=== PATIENT | male | born 1960 | race Caucasian/White ===

== ENCOUNTER 2017-09-12 08:41 | Day surgery (SDC) | payer BC ==
[~2017-09-12] VITALS: Ht 188 cm; Wt 141.1 kg
[~2017-09-12 08:41] MED LIST: ATOR20TA66 PO; CETI10TA20 PO; CHOL20003 PO; LEVO112T55 PO; MONT10TA24 PO; OMEP40CA36 PO; ORPH100T PO; TURM500C4 PO
--- OUTSIDE RECORDS SUMMARY | 2017-09-12 08:45 | XMS REPORT | Clinical Summary ---
Author Author [facility] Organization [facility] Address Unknown Phone Unavailable Care Team Providers Care Card Grinder Helper Name Role Phone PCP Unavailable Source Comments Some departments are not documenting in the electronic medical record. If you do not see the information that you expected, contact Release of Information in the Health Information Management department at [phone] for further assistance in locating additional records.[facility] Allergies Active Allergy Reactions Severity Noted Date Comments Lettuce DIARRHEA, SEE COMMENTS Medium 03/25/2012 Cramping and gas Epinephrine SEE COMMENTS 05/08/2012 Raised blood pressure Penicillins RASH 02/14/2012 Current Medications Prescription Sig. Disp. Refills Start End Date Status Date Cholecalciferol (Vitamin Take 1 Cap by mouth Active D3) (VITAMIN D-3) 2,000 daily. unit Cap atorvastatin (LIPITOR) 20 Take 20 mg by mouth Active mg tablet daily. montelukast (SINGULAIR) Take 10 mg by mouth at Active 10 mg tablet bedtime daily. orphenadrine ER(+) Take 100 mg by mouth as Active (NORFLEX) 100 mg tablet Needed for Pain. cetirizine (ZYRTEC) 10 mg Take 10 mg by mouth every Active tablet morning. levothyroxine (SYNTHROID) Take 2 Tabs by mouth 180 Tab 3 11/05/19 Active 112 mcg daily 30 minutes before 17 tabletIndications: breakfast. 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 Family History Medical History Relation Name Comments Diabetes Brother Hypertension Brother Cancer Father Suicide Father Alzheimer's Mother Relation Name Status Comments Brother Father Mother Social History Tobacco Use Types Packs/Day Years Used Date Never Smoker Smokeless Tobacco: Never Used Tobacco Cessation: Counseling Given: No Alcohol Use Drinks/Week oz/Week Comments Yes one drink per month Sex Assigned at Date Recorded Not on file Last Filed Vital Signs Vital Sign Reading Time Taken Blood Pressure 138/88 10/10/2016 10:26 AM CARPET OR RUG LAYER HELPER Pulse 72 10/10/2016 10:26 AM CARPET OR RUG LAYER HELPER Temperature 36.6 C (97.9 F) 08/19/2013 1:12 PM CDT Respiratory Rate 16 05/08/2012 11:16 AM CDT Oxygen Saturation 95% 03/27/2012 12:00 PM CDT Inhaled Oxygen - - Concentration Weight 139.5 kg (307 lb 8 oz) 10/10/2016 10:26 AM CARPET OR RUG LAYER HELPER Height 188 cm (6' 2") 10/10/2016 10:26 AM CARPET OR RUG LAYER HELPER Body Mass Index 39.48 10/10/2016 10:26 AM CARPET OR RUG LAYER HELPER Plan of Treatment Health Maintenance Due Date Last Done Comments HEPATITIS C SCREENING 1962 PERTUSSIS VACCINE 1973 TETANUS VACCINE 1979 PHYSICAL (COMPREHENSIVE) 08/15/2012 08/15/2011 EXAM COLORECTAL CANCER 2012 SCREENING INFLUENZA VACCINE 06/03/2017 08/05/2016 (Previously completed), 08/17/2011 Results Not on filefrom Last 3 Months
[2017-09-12 08:50] VITALS: BP 130/81
[2017-09-12] MEDS ORDERED: D5 LR IV SOLUTION 1,000 ML IV ONE (08:51)
[2017-09-12] MEDS ORDERED: LIDOCAINE JELLY 2% (XYLOCAINE) 5 ML TUBE MM PRN (09:00)
[2017-09-12] MEDS ORDERED: HURRICAINE EXT TUBE (BENZOCAINE) XX PRN (09:00)
[2017-09-12] MEDS ORDERED: D5 LR IV SOLUTION 1,000 ML IV PRN (09:15)
[2017-09-12] MEDS ORDERED: fentaNYL INJECTION 100 MCG/2 ML AMP ONE (10:05)
[2017-09-12] MEDS ORDERED: LIDOCAINE JELLY 2% (XYLOCAINE) 5 ML TUBE ONE (10:05)
[2017-09-12] MEDS ORDERED: MIDAZOLAM 2 MG/2 ML (VERSED) VIAL ONE ×2 (10:05)
[2017-09-12] MEDS ORDERED: HURRICAINE EXT TUBE (BENZOCAINE) ONE (10:05)
[2017-09-12] MEDS: fentaNYL INJECTION 100 MCG/2 ML AMP IVP PRN ×2 (10:25→10:30)
[2017-09-12] MEDS: MIDAZOLAM 2 MG/2 ML (VERSED) VIAL IVP PRN ×2 (10:27→10:35)
[2017-09-12 11:00] VITALS: BP 122/78
[2017-09-12 11:30] VITALS: BP 123/76
[2017-09-12 11:38] VITALS: BP 123/76
--- NOTE | 2017-09-12 14:19 | OPERATIVE REPORT ---
DATE OF SERVICE: EGD SUMMARY INDICATION FOR THE PROCEDURE: An episode of dysphagia with severe chest pain, nausea and vomiting. The patient was placed in the left lateral decubitus position. The endoscope was inserted in the oral cavity and under direct visualization the esophagus was intubated. The scope was passed down the esophagus through the stomach and second portion of the duodenum. Careful inspection was made as the endoscope was withdrawn. The patient tolerated the procedure well. FINDINGS: The posterior hypopharynx, arytenoid aperture, true and false vocal folds were unremarkable. No evidence for erythema or exudate were noted. Proximal and mid esophagus were unremarkable. Present in the distal esophagus, was a 3 cm long linear area compatible with trauma. The proximal 2 cm were erythematous erosion. The distal centimeter was ulcerated with adherent white slough. No evidence for foreign body was noted. Borders were distinct without erythema. Photographic documentation was obtained. The GE junction was distinct without evidence for abnormality. There was one island of esophageal mucosa mass about 0.5 cm above the Z line, biopsy was taken and submitted for histopathology. There is no evidence for nodularity, erythema or other abnormality. A small hiatal hernia was present. The cardia, fundus, antrum, pylorus, pyloric channel, duodenal bulb and second portion of the duodenum were unremarkable. ASSESSMENT: Traumatic-appearing distal esophageal ulceration as noted above was present. The patient was advised to continue a soft solid diet for another week and finish up his 4-week course of proton pump inhibitor therapy in the form of omeprazole. Job ID: [id number] DocumentID: [id number] Dictated Date: 09/12/2017 11:04:39 Biology Instructor Date: 09/12/2017 14:18:52 Dictated By: JOANN RUIZ MD
== END 2017-09-12 11:39 | disposition home or self-care (01) ==
LOC: ENDO 08:41
PROVIDERS: ATTEND Internal Medicine
DX: K22.10 Ulcer of esophagus without bleeding (principal); K44.9 Diaphragmatic hernia without obstruction or gangrene; K21.0 Gastro-esophageal reflux disease with esophagitis; G47.30 Sleep apnea, unspecified; E78.00 Pure hypercholesterolemia, unspecified

== ENCOUNTER 2018-05-21 14:52 | Outpatient (RCR) | payer BC | END 2018-05-21 15:29 | disposition home or self-care (01) | PROVIDERS: ATTEND Orthopaedic Surgery | DX: M23.301 Other meniscus derangements, unspecified lateral meniscus, left knee (principal) ==

== ENCOUNTER 2019-10-28 13:26 | Outpatient (RCR) | payer BC | END 2019-10-28 17:00 | disposition home or self-care (01) | PROVIDERS: ATTEND Physical Therapist | DX: M54.16 Radiculopathy, lumbar region (principal) ==

== ENCOUNTER 2022-04-08 05:37 | Outpatient (CLI) | payer BC ==
[~2022-04-08] VITALS: Ht 188 cm; Wt 104.3 kg
[~2022-04-08 05:37] MED LIST changes: -CETI10TA20 PO; +CETI10TA49 PO; +MONT-40 PO; -MONT10TA24 PO; -OMEP40CA36 PO; +OMEP40CA6 PO
[2022-04-08] MEDS ORDERED: IBUP-1773 PO (10:30)
[2022-04-08] MEDS ORDERED: NF-VITD400 PO (10:30)
== END 2022-04-08 10:32 | disposition home or self-care (01) ==
LOC: PREOP 05:37
PROVIDERS: ATTEND Internal Medicine
DX: Z01.818 Encounter for other preprocedural examination (principal)

== ENCOUNTER 2022-04-12 08:25 | Day surgery (SDC) | payer BC ==
--- NOTE | 2022-04-08 08:07 | HISTORY AND PHYSICAL ---
DATE OF SERVICE: COLONOSCOPY HISTORY AND PHYSICAL HISTORY OF PRESENT ILLNESS: The patient is a 61-year-old white male seen for yearly wellness evaluation. He has past history of prolactinoma, status post transsphenoidal resection in 2011 with no evidence for recurrence. 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 He history of obstructive sleep apnea and right lumbar radiculopathy. He has been following the Noom's plan for weight loss and over the last six months, his weight is down 46 pounds. He reports that he is no longer having to take CBD for radicular pain, continues to walk on a regular basis. He has had no problems with headache, no vision disturbances, and has been feeling well. He is a little over 10 years out from his last colonoscopy that was unremarkable. For this reason, he is being set up for repeat screening colonoscopy. FAMILY HISTORY: Reviewed. Refer to 2019. There have been no changes. No family history for GI tract malignancy. Brother who is obese with type 2 diabetes and poor health habits, still living around the age of 62. 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 with no past smoking or alcohol history. He is fully vaccinated for COVID. PHYSICAL EXAMINATION: GENERAL: Reveals a white male, appears to be in no acute distress. VITAL SIGNS: Weight 234 pounds and blood pressure 120/80. HEENT: Unremarkable. Ear canals clear with normal TMs. CHEST: Clear. CARDIOVASCULAR: Reveals regular rate and rhythm without murmur, S3 or S4. ABDOMEN: Soft, supple without mass, organomegaly or tenderness. EXTREMITIES: Reveal no cyanosis, clubbing or edema. SKIN: Evaluation reveals no suspicious nevi. ASSESSMENT AND PLAN: Stable wellness evaluation improvement in health parameters due to significant weight loss through healthy eating habits and regular physical activity. The patient is strongly commended. He is being set up for a screening colonoscopy. Followup evaluation in 6 months with repeat prolactin level, thyroid panel, CMP, and PSA will be performed in addition to flu shot if he has not received one. Job ID: [id number] DocumentID: [id number] Dictated Date: 04/04/2022 16:55:13 Ophthalmic Photographer Date: 04/04/2022 17:27:10 Dictated By: JOANN RUIZ MD
[~2022-04-12] VITALS: Ht 188 cm; Wt 104.3 kg
[~2022-04-12 08:25] MED LIST changes: +IBUP-1773 PO; +NF-VITD400 PO
[2022-04-12 08:40] VITALS: BP 130/79
[2022-04-12] MEDS ORDERED: LACTATED RINGERS 1,000 ML IV STA (08:41)
--- NOTE | 2022-04-12 09:02 | Pre-Op Note & Conscious Sedat ---
Pre-Operative Progress Note H&P Reviewed The H&P was reviewed, patient examined and no changes noted. Date H&P Reviewed: Apr 12, 2022 Time H&P Reviewed: 09:01 Conscious Sedation Pre-Proced ASA Score 2 For ASA 3 and 4: Consider anesthesia and medical clearance. Also, for patients with a history of failed moderate sedation consider anesthesia. Airway Lungs Heart ASA score ASA 1: a normal healthy patient ASA 2: a patient with a mild systemic disease (mid diabetes, controlled hypertension, obesity ASA 3: a patient with a severe systemic disease that limits activity (angina, COPD, prior Myocardial infarction) ASA 4: a patient with an incapacitating disease that is a constant threat to life (CHF, renal failure) ASA 5: a moribund patient not expected to survive 24 hrs. (ruptured aneurysm) ASA 6: a declared brain- patient whose organs are being harvested. For emergent operations, add the letter E after the classification Mallampati Classification Grade 2 Sedation Plan Analgesia, Amnesia, Plan communicated to team members, Discussed options with patient/fam, Discussed risks with patient/fam The patient is an appropriate candidate to undergo the planned procedure, sedation, and anesthesia. The patient immediately re-assessed prior to indication. JOANN RUIZ MD Apr 12, 2022 09:01
[2022-04-12] MEDS ORDERED: PROPOFOL INJECTION 50 ML IV ONE (09:22)
[2022-04-12 10:17] VITALS: BP 116/67
[2022-04-12 10:30] VITALS: BP 111/66
[2022-04-12 11:02] VITALS: BP 111/83
--- NOTE | 2022-04-12 12:32 | Anesthesia-General Post-Op ---
MAC Patient Condition Mental Status/LOC: Same as Preop Cardiovascular: Satisfactory Nausea/Vomiting: Absent Respiratory: Satisfactory Pain: Controlled Complications: Absent Post Op Complications Complications None Follow Up Care/Instructions Patient Instructions None needed. Anesthesiology Discharge Order Discharge Order Patient was doing well after the procedure, no complaints, stable vital signs, no apparent adverse anesthesia problems. No complications reported per nursing. KEERTHI ROY 10, 2022 12:32
--- NOTE | 2022-04-12 15:12 | OPERATIVE REPORT ---
DATE OF SERVICE: COLONOSCOPY SUMMARY INDICATION FOR THE PROCEDURE: Screening. PRIMARY CARE PHYSICIAN: Joann Ruiz MD. DESCRIPTION OF PROCEDURE: Prior to undergoing colonoscopy, digital rectal evaluation was performed. Prostate is mildly enlarged and anodular on digital inspection. No other abnormalities were noted on digital inspection of anal canal or distal rectal vault. The colonoscope was then inserted into the rectum and under direct visualization advanced to the cecum. The cecum was identified by identification of the valve and cecal strap. Photographic documentation was obtained. A careful inspection was made as the colonoscope was withdrawn. The quality of prep was good. FINDINGS: There was no evidence for internal or external hemorrhoids and the rectum was unremarkable. Several small to medium sized sigmoid diverticulum were present without evidence for diverticulitis. No other sigmoid colonic abnormalities were appreciated. The descending colon, splenic flexure, transverse colon, hepatic flexure, ascending colon, and cecum were unremarkable. ASSESSMENT: Mild diverticular disease confined to the sigmoid colon was present without evidence for diverticulitis. This was otherwise normal colonoscopy to the cecum. Digital evaluation of the prostate was compatible with mild benign prostatic hypertrophy without evidence for prostate nodularity. I will advocate consideration for repeat screening colonoscopy in 10 years. Job ID: [id number] DocumentID: [id number] Dictated Date: 04/12/2022 10:17:26 Electromechanical Assembler Date: 04/12/2022 15:11:42 Dictated By: JOANN RUIZ MD
== END 2022-04-12 11:06 | disposition home or self-care (01) ==
LOC: ENDO 08:25
PROVIDERS: ATTEND Internal Medicine
DX: Z12.11 Encounter for screening for malignant neoplasm of colon (principal); N40.0 Benign prostatic hyperplasia without lower urinary tract symptoms; K57.30 Diverticulosis of large intestine without perforation or abscess without bleeding; E03.8 Other specified hypothyroidism; Z79.890 Hormone replacement therapy; G47.33 Obstructive sleep apnea (adult) (pediatric); Z88.0 Allergy status to penicillin; Z88.5 Allergy status to narcotic agent; Z88.8 Allergy status to other drugs, medicaments and biological substances

== ENCOUNTER 2022-05-02 05:32 | Outpatient (CLI) | payer BC ==
[~2022-05-02] VITALS: Ht 187.9 cm; Wt 102.2 kg
== END 2022-05-02 13:03 | disposition home or self-care (01) ==
LOC: PREOP 05:32
PROVIDERS: ATTEND Surgery
DX: Z01.818 Encounter for other preprocedural examination (principal)

== ENCOUNTER 2022-05-09 10:25 | Day surgery (SDC) | payer BC ==
--- NOTE | 2022-05-01 21:47 | HISTORY AND PHYSICAL ---
DATE OF SERVICE: DATE OF ADMISSION: 05/09/2022. ATTENDING PRIMARY CARE PHYSICIAN: Dr. Tian Martinez. HISTORY OF PRESENT ILLNESS: The patient is a 61-year-old male referred over to us for a right inguinal hernia. He reports that he noticed some discomfort in the region, may be even a year ago; however, in the past 4 to 6 weeks, he has noticed a significant amount of aching pain and has noticed an outpouching on an intermittent basis. Upon examination, he was found to have a right inguinal hernia, which was visible and tender to palpation; however, reducible. He is otherwise eating well and having normal bowel movements as well. PAST MEDICAL HISTORY: History of a pituitary adenoma, hypothyroid, asthma, gastroesophageal reflux disease, and hypercholesterolemia. PAST SURGICAL HISTORY: Transsphenoidal pituitary adenoma resection 04/2012 and left knee arthroscopy 2017. ALLERGIES: EPHEDRINE, PENICILLIN, CIPROFLOXACIN. MEDICATIONS: Lipitor, montelukast, levothyroxine, Pepcid, and Zyrtec. SOCIAL HISTORY: Negative smoke and negative alcohol. FAMILY HISTORY: Father, esophageal cancer and hypertension. Mother, hypertension. REVIEW OF SYSTEMS: A well-nourished male in no acute distress. He is not experiencing any shortness of breath or difficulty breathing. No chest pain, palpitations, diaphoresis. No nausea, vomiting, no diarrhea or constipation. No fever, chills, and no recent inadvertent weight loss. All other review of systems negative. PHYSICAL EXAMINATION: VITAL SIGNS: Blood pressure 122/79. Current weight 233.4 pounds at height of 6 feet 2 inches. CHEST: Clear. Good breath sounds bilaterally. HEART: Regular, no murmurs. EXTREMITIES: No lower extremity edema and negative Homans sign. HEENT: No scleral icterus. NECK: No cervical lymphadenopathy. ABDOMEN: Soft and nondistended. There is a palpable lesion in the right inguinal region consistent with an inguinal hernia, which is reducible; however, tender to palpation. SKIN: Warm, dry. ASSESSMENT AND PLAN: A 61-year-old male with a symptomatic reducible right inguinal hernia. The natural history of hernias was explained to the patient as well as the risks and benefits of surgery. He is in full understanding of this and would like to proceed with a laparoscopic right inguinal hernia repair with mesh, which we will schedule. All post procedure restrictions were also explained in depth to the patient as well. Job ID: [id number] DocumentID: [id number] Dictated Date: 04/30/2022 16:03:02 Client Services Director Date: 04/30/2022 17:40:15 Dictated By: ASCENCION WISEMAN MD
[~2022-05-09] VITALS: Ht 187.9 cm; Wt 102.2 kg
[2022-05-09] VITALS (11 sets, daily range): BP systolic 128–138; BP diastolic 72–84
[2022-05-09] MEDS ORDERED: ACETAMINOPHEN 325 MG TABLET PO PRN (10:45)
[2022-05-09] MEDS ORDERED: ONDANSETRON 4 MG/2 ML (SDV) Z0FRAN IVP PRN ×2 (10:45→14:30)
[2022-05-09] MEDS ORDERED: HYDROcodone/APAP 5 MG/325 MG (LORTAB) TAB PO ONE (10:45)
[2022-05-09] MEDS ORDERED: morphine INJ 10 MG/ML 1ML (SYR OR VIAL) IVP PRN (10:45)
--- NOTE | 2022-05-09 10:45 | Progress Note-Pre Operative ---
Pre-Operative Progress Note H&P Reviewed The H&P was reviewed, patient examined and no changes noted. Date Seen by Provider: May 09, 2022 Time Seen by Provider: 10:40 Date H&P Reviewed: May 09, 2022 Time H&P Reviewed: 10:35 Pre-Operative Diagnosis: Symptomatic right inguinal hernia MARIO RIVERA APRN May 09, 2022 10:45
[2022-05-09] MEDS ORDERED: HYDR-3817 PO (10:46)
--- NOTE | 2022-05-09 10:47 | Discharge Inst-Surgical ---
D/C Lap Instructions-KIDO Reconcile Patient Problems Problems Reviewed?: Yes New, Converted, or Re-Newed RX: RX on Chart Follow Up Appt in 2 weeks Activity as tolerated No driving for 24 hours No driving while on pain medications Incentive Spirometry use every 2 hours while awake Regular Diet Symptoms to Report: Fever over 101 degree F, Nausea/Vomiting Infection Signs and Symptoms to report: Increased redness, Foul odor of wound, Increased drainage Bathing instructions: May shower Operative Area Clean/Dry; Keep incision clean/dry If any problems/questions: Contact your physician or go to Emergency Room MARIO RIVERA APRN May 09, 2022 10:47
[2022-05-09] MEDS: LACTATED RINGERS 1,000 ML IV PRN ×2 (11:05→13:56)
[2022-05-09] MEDS ORDERED: CLINDAMYCIN 600 MG/50 ML IVPB 50 ML IV ONE (11:15)
[2022-05-09] MEDS ORDERED: LIDOCAINE/EPI 2% 1:100,00 (XYLOCAINE) 20 ML VIAL ONE (11:52)
[2022-05-09] MEDS ORDERED: ONDANSETRON 4 MG/2 ML (SDV) Z0FRAN ONE (12:53)
[2022-05-09] MEDS ORDERED: GLYCOPYRROLATE 0.2 MG/ML (ROBINUL) 2 ML VIAL ONE (12:53)
[2022-05-09] MEDS ORDERED: proPOfol 200 MG/20 ML (DIPRIVAN) VIAL IV ONE (12:53)
[2022-05-09] MEDS ORDERED: fentaNYL INJ 100 MCG/2 ML AMP ONE ×2 (12:53→14:02)
[2022-05-09] MEDS ORDERED: LIDOCAINE PF 2% 5 ML (XYLOCAINE) VIAL ONE (12:53)
[2022-05-09] MEDS ORDERED: MIDAZOLAM 2 MG/2 ML (VERSED) VIAL ONE (12:53)
[2022-05-09] MEDS ORDERED: NEOSTIGMINE (BLOXIVERZ ) 1 MG/1ML 10 ML VIAL ONE (12:54)
--- NOTE | 2022-05-09 14:05 | Progress Note-Post Operative ---
Post-Operative Progess Note Surgeon (s)/Renewable Energy Engineer (s) Surgeon ASCENCION WISEMAN MD Renewable Energy Engineer: randi bonilla MANAGER STUDENT SERVICES Pre-Operative Diagnosis Symptomatic right inguinal hernia Post-Operative Diagnosis reducible indirect ing hernia Procedure & Operative Findings Date of Procedure 05/09/22 Procedure Performed/Findings laparoscopic right inguinal hernia repair with mesh. Anesthesia Type get Estimated Blood Loss Estimated blood loss (mL): minimal Specimens/Packing Specimens Removed none ASCENCION WISEMAN MD May 09, 2022 14:05
[2022-05-09] MEDS ORDERED: SEVOFLURANE (ULTANE) 15 ML INHAL SOLN ONE (14:16)
[2022-05-09] MEDS ORDERED: ROCURONIUM 50 MG/5 ML (ZEMURON) VIAL IV ONE (14:16)
[2022-05-09] MEDS ORDERED: HYDROmorphone 2 MG/ML VIAL (DILAUDID) IV ONE (14:30)
[2022-05-09] MEDS ORDERED: morphine INJ 10 MG/ML 1ML (SYR OR VIAL) IVP ONE (14:30)
[2022-05-09] MEDS: HYDROmorphone 2 MG/ML VIAL (DILAUDID) ONE ×2 (14:33→14:36)
--- NOTE | 2022-05-09 14:37 | Anesthesia-General Post-Op ---
General Patient Condition Mental Status/LOC: Same as Preop Cardiovascular: Satisfactory Nausea/Vomiting: Absent Respiratory: Satisfactory Pain: Controlled Complications: Absent Post Op Complications Complications None Follow Up Care/Instructions Patient Instructions None needed. Anesthesia/Patient Condition Patient Condition Patient is doing well in PACU, does complain of some abdominal pain but more right shoulder pain, stable vital signs, no apparent adverse anesthesia problems. No complications reported per nursing. KEERTHI ROY DO May 09, 2022 14:37
--- NOTE | 2022-05-10 01:09 | OPERATIVE REPORT ---
DATE OF SERVICE: 05/09/2022 ATTENDING PRIMARY PHYSICIAN: Tian Martinez MD. PREOPERATIVE DIAGNOSIS: Symptomatic reducible right inguinal hernia. POSTOPERATIVE DIAGNOSIS: Symptomatic reducible right indirect inguinal hernia. PROCEDURE: Laparoscopic right inguinal hernia repair with mesh. SURGEON: Ascencion Wiseman MD. ROOFING SALES REPRESENTATIVE: Stewart Helm APRN. ANESTHESIA: General endotracheal. ESTIMATED BLOOD LOSS: Minimal. FINDINGS: Symptomatic reducible right indirect inguinal hernia. DISPOSITION: The patient tolerated the procedure well. INDICATIONS: The patient is a 61-year-old male who has developed pain and a bulge in the right inguinal region approximately 2 months ago. He states that he was doing some lifting and exertion at that time. Since this first started, he has noticed with standing as well as a lifting and exertion, he will have worsening pain in the right inguinal region and a bulge with reoccur as well. He was examined in the office and found to have a reducible right inguinal hernia, which was tender to palpation. DESCRIPTION OF PROCEDURE: The patient was brought to the operating room, laid supine on the table. After adequate IV pain and sedative medications and general endotracheal intubation, the abdomen was prepped and draped in standard surgical fashion. A 0.5% Marcaine with epinephrine was used to anesthetize the infraumbilical rim and a crescent shaped skin incision made using a 15 blade. A sharp towel clamp was used to retract the abdominal wall anteriorly and a Veress needle inserted with a low opening pressure of 0 mmHg and the abdomen was then insufflated to 15 mmHg pressure. The Veress needle removed and a 10 mm XL trocar placed followed by a 10 mm 45-degree angle laparoscope visualizing the peritoneal cavity. A 4-quadrant abdominal exploration was performed. A right indirect inguinal hernia was identified. There did not appear to be any significant left inguinal hernia component. Small bowel, colon, omentum appeared normal. Under direct visualization, we then proceeded to place bilateral 5 mm ports after the skin and peritoneal lining were anesthetized using 0.5% Marcaine with epinephrine and transverse skin incision was made using 15 blade. The patient was then placed in reverse Trendelenburg position. The peritoneal lining was then opened starting laterally towards the conjoined tendon and inguinal ligament laterally. We then proceeded medially until Jhonatan's ligament was reached. We then proceeded with inferior dissection of the hernia sac. The cord and its surrounding contents identified and preserved throughout the whole process. Good hemostasis was observed. A medium size 3DMax polypropylene mesh was then placed through the 10 mm port site and placed into the defect and then tacked to Jhonatan's ligament with an absorbable tack medially into the inguinal ligament laterally. The peritoneal lining was then placed over the mesh and a few absorbable tacks placed to hold this in place with visualization of good hemostasis. The 10 mm port site fascia and peritoneum were then closed under direct visualization using a Tahir-Elza device and 0 Vicryl suture. The abdomen was desufflated and remaining ports removed. All skin incisions were closed using 4-0 Monocryl running subcuticular sutures. Wounds were then cleaned and covered with Dermabond. The patient tolerated the procedure well. We will start IV normal pain medication as well as a clear liquid diet. Once he is tolerating clears, has good pain control with oral pain medications, ambulating well, we will discharge him home where he will be instructed to wear his scrotal support for the next two weeks as well as to do no heavy lifting or exertion for the next two weeks as well. Job ID: [id number] DocumentID: [id number] Dictated Date: 05/09/2022 14:59:43 Wireless Telegrapher Date: 05/10/2022 01:08:01 Dictated By: ASCENCION WISEMAN MD
== END 2022-05-09 16:20 ==
LOC: SDC 10:25
PROVIDERS: ATTEND Surgery
DX: K40.90 Unilateral inguinal hernia, without obstruction or gangrene, not specified as recurrent (principal)
CPT/HCPCS: 49650; 87081; 94664; C1781